=== PATIENT | female | born 1955 | race Caucasian/White ===

== ENCOUNTER 2020-04-03 11:52 | Emergency (ER) | payer OTHER ==
[~2020-04-03] VITALS: Ht 162.6 cm; Wt 61.7 kg
[2020-04-03 12:04] VITALS: BP 110/62
--- NOTE | 2020-04-03 12:08 | NUR ---
DR ALFORD AT BEDSIDE FOR EVAL.
--- NOTE | 2020-04-03 12:31 | NUR ---
PROVIDED W/ WOUND CARE. D/C IN STABLE CONDITION.
== END 2020-04-03 12:33 | disposition home or self-care (01) ==
LOC: ER 11:55
DX: S80.862A Insect bite (nonvenomous), left lower leg, initial encounter (principal); S80.861A Insect bite (nonvenomous), right lower leg, initial encounter; L08.9 Local infection of the skin and subcutaneous tissue, unspecified; W57.XXXA Bitten or stung by nonvenomous insect and other nonvenomous arthropods, initial encounter; Y93.89 Activity, other specified; Y92.89 Other specified places as the place of occurrence of the external cause; Y99.8 Other external cause status